=== PATIENT | female | born 1930 | race African-American/Black ===

== ENCOUNTER 2018-06-23 06:48 | Inpatient (IN) | payer MEDICARE, MEDICAID ==
[~2018-06-23] VITALS: Ht 167.6 cm; Wt 65.3 kg
[~2018-06-23 06:48] MED LIST: AMIT10TA6 PO; AMLO5TAB88 MT; BUSP5TAB3 PO; CLON0.1T PO; DONE5TAB33 PO; DULO60CA44 PO; FERR-63 PO; IPRA0.2S51 NEB; LEVO88TA7 PO; LISI10TA5 PO; MEMA10TA2 PO; PREG100C PO; TRAM50TA3 PO
[2018-06-23 09:22] LABS: BASOPHILS % 0.9 % (0.0-2.0); EOSINOPHILS % 2.9 % (0.0-5.0); HEMATOCRIT. 36.4 % (36.0-48.0); HEMOGLOBIN. 11.8 g/dL (12.0-16.0); MEAN CORPUSCULAR HEMOGLOBIN 27.9 pg (28.0-32.0); MEAN CORPUSCULAR VOLUME 86.1 fL (81.0-99.0); MEAN PLATELET VOLUME 7.9 fl (7.4-10.4); MONOCYTES % 8.5 % (2.0-8.0); NEUTROPHILS % 62.7 % (40.0-76.0); PLATELET 244 x1000/uL (130-400); RED BLOOD CELL COUNT 4.23 mill/uL (4.2-5.4); RED CELL DISTRIBUTION WIDTH 14.7 % (11.6-14.6)
[2018-06-23 09:28] LABS: CHLORIDE 107 mEq/L (98-107)
[2018-06-23 09:32] LABS: ETHANOL BLOOD < 10 mg/dL
[2018-06-23 11:57] LABS: CLARITY URINE CLEAR (CLEAR); COLOR URINE YELLOW (YELLOW); KETONES URINE NEGATIVE (NEGATIVE); LEUKOCYTE ESTERASE URINE NEGATIVE (NEGATIVE); NITRITE URINE NEGATIVE (NEGATIVE); OCCULT BLOOD URINE 2+ (NEGATIVE); PROTEIN URINE NEGATIVE (NEGATIVE); SPECIFIC GRAVITY URINE 1.024 (1.005-1.030); UROBILINOGEN URINE 0.2 E.U./dL (0.2-1.0)
[2018-06-23] MEDS ORDERED: GUAIFENESIN 200MG/10ML SUGAR FREE UDC PO PRN (12:00)
[2018-06-23] MEDS ORDERED: MAGNESIUM/ALUMINUM HYDROXIDE/SIMETHICONE 30ML UDC PO PRN (12:00)
[2018-06-23] MEDS ORDERED: ONDANSETRON HCL 4MG/2ML INJ IV PRN (12:00)
[2018-06-23] MEDS ORDERED: CLONIDINE 0.1MG TABLET PO PRN (12:00)
[2018-06-23] MEDS ORDERED: ACETAMINOPHEN 325MG TABLET PO PRN (12:00)
[2018-06-23] MEDS ORDERED: DIPHENHYDRAMINE 50MG/ML VIAL IV PRN (12:00)
[2018-06-23] MEDS ORDERED: DEXTROSE 50% WATER 50ML SYRINGE IV PRN ×2 (12:00)
[2018-06-23] MEDS ORDERED: DOCUSATE SODIUM 100MG CAPSULE PO PRN (12:00)
[2018-06-23 12:36] LABS: *AMPHETAMINES SCREEN URINE NEGATIVE (NEGATIVE)
[2018-06-23 12:38] LABS: *BARBITURATES SCREEN URINE NEGATIVE (NEGATIVE); *BENZODIAZEPINES SCREEN URINE NEGATIVE (NEGATIVE); *COCAINE SCREEN URINE NEGATIVE (NEGATIVE); CANNABINOID URINE SCREEN NEGATIVE (NEGATIVE); METHADONE URINE SCREEN NEGATIVE (NEGATIVE); OPIATES URINE SCREEN NEGATIVE (NEGATIVE); PHENCYCLIDINE URINE SCREEN NEGATIVE (NEGATIVE)
[2018-06-23 17:00] VITALS: BP 170/97
[2018-06-23] MEDS: INSULIN LISPRO 100 UNITS/ML SUBCUT SCH ×2 (17:30→21:17)
[2018-06-23] MEDS: BLOOD SUGAR DIAGNOSTIC STRIP TEST SCH ×2 (17:36→20:47)
[2018-06-23] MEDS: FERROUS SULFATE 325MG TABLET PO SCH (17:43)
[2018-06-23] MEDS: BUSPIRONE HCL 5MG TABLET PO SCH (17:43)
[2018-06-23] MEDS: CLONIDINE 0.1MG TABLET PO SCH (17:43)
[2018-06-23] MEDS: MEMANTINE HCL 10MG TABLET PO SCH (17:43)
[2018-06-23] MEDS: ENOXAPARIN 40MG/0.4ML SYR SUBCUT SCH (17:44)
[2018-06-23 18:28] VITALS: BP 151/85
[2018-06-23 20:00] VITALS: BP 147/76
[2018-06-23] MEDS: DONEPEZIL HCL 5MG TABLET PO SCH (20:47)
[2018-06-23] MEDS: LORAZEPAM 2MG/ML CPJ IV PRN (20:49)
[2018-06-23] MEDS: PREGABALIN 50 MG CAPSULE PO SCH (21:00)
[2018-06-24] VITALS (8 sets, daily range): BP systolic 70–168; BP diastolic 41–104
[2018-06-24] MEDS: LEVOTHYROXINE SODIUM 88MCG TABLET PO SCH (06:41)
[2018-06-24] MEDS: BLOOD SUGAR DIAGNOSTIC STRIP TEST SCH ×4 (06:42→20:17)
[2018-06-24] MEDS: INSULIN LISPRO 100 UNITS/ML SUBCUT SCH ×4 (07:02→20:22)
[2018-06-24 07:03] LABS: BASOPHILS % 0.8 % (0.0-2.0); EOSINOPHILS % 3.1 % (0.0-5.0); HEMATOCRIT. 35.3 % (36.0-48.0); HEMOGLOBIN. 11.3 g/dL (12.0-16.0); LYMPHOCYTES % 34.2 % (20.0-50.0); MEAN CORPUSCULAR HEMOGLOBIN 27.6 pg (28.0-32.0); MEAN PLATELET VOLUME 8.1 fl (7.4-10.4); MONOCYTES % 9.1 % (2.0-8.0); NEUTROPHILS % 52.8 % (40.0-76.0); PLATELET 237 x1000/uL (130-400); RED CELL DISTRIBUTION WIDTH 14.2 % (11.6-14.6)
[2018-06-24 07:06] LABS: CHLORIDE 108 mEq/L (98-107)
[2018-06-24] MEDS ORDERED: LISINOPRIL 10MG TABLET PO SCH (09:00)
[2018-06-24] MEDS: AMITRIPTYLINE 10MG TABLET PO SCH (09:49)
[2018-06-24] MEDS: BUSPIRONE HCL 5MG TABLET PO SCH ×2 (09:49→17:11)
[2018-06-24] MEDS: LISINOPRIL 20MG TABLET PO SCH (09:49)
[2018-06-24] MEDS: DULOXETINE HCL 60MG DR CAPSULE PO SCH (09:50)
[2018-06-24] MEDS: PREGABALIN 50 MG CAPSULE PO SCH ×2 (09:50→20:16)
[2018-06-24] MEDS: CLONIDINE 0.1MG TABLET PO SCH ×2 (09:50→17:00)
[2018-06-24] MEDS: MEMANTINE HCL 10MG TABLET PO SCH ×2 (09:50→17:11)
[2018-06-24] MEDS: FERROUS SULFATE 325MG TABLET PO SCH ×2 (09:51→17:10)
[2018-06-24] MEDS: AMLODIPINE 5MG TABLET PO SCH (09:52)
[2018-06-24] MEDS ORDERED: SODIUM CHLORIDE 0.9% 250 ML IV ONE (16:45)
[2018-06-24] MEDS: ENOXAPARIN 40MG/0.4ML SYR SUBCUT SCH (17:11)
[2018-06-24] MEDS: DONEPEZIL HCL 5MG TABLET PO SCH (20:16)
[2018-06-24] MEDS: DEXT 5%/0.45% NACL KCL 20MEQ/L 1,000 ML IV SCH (21:50)
[2018-06-25] MEDS: LORAZEPAM 2MG/ML CPJ IV PRN ×2 (02:02→15:14)
[2018-06-25 03:59] VITALS: BP 143/84
[2018-06-25] MEDS: LEVOTHYROXINE SODIUM 88MCG TABLET PO SCH (06:35)
[2018-06-25] MEDS: BLOOD SUGAR DIAGNOSTIC STRIP TEST SCH ×4 (06:35→21:26)
[2018-06-25] MEDS: INSULIN LISPRO 100 UNITS/ML SUBCUT SCH ×4 (06:46→21:00)
[2018-06-25 07:18] LABS: HEMATOCRIT. 36.6 % (36.0-48.0); HEMOGLOBIN. 11.8 g/dL (12.0-16.0); MEAN CORPUSCULAR HEMOGLOBIN 27.4 pg (28.0-32.0); MEAN CORPUSCULAR VOLUME 84.9 fL (81.0-99.0); MEAN PLATELET VOLUME 7.9 fl (7.4-10.4); PLATELET 263 x1000/uL (130-400); RED CELL DISTRIBUTION WIDTH 14.5 % (11.6-14.6)
[2018-06-25 07:42] LABS: CHLORIDE 107 mEq/L (98-107)
[2018-06-25] MEDS: DEXT 5%/0.45% NACL KCL 20MEQ/L 1,000 ML IV SCH ×2 (07:55→21:09)
[2018-06-25 08:00] VITALS: BP 147/81
[2018-06-25] MEDS: AMITRIPTYLINE 10MG TABLET PO SCH (08:27)
[2018-06-25] MEDS: CLONIDINE 0.1MG TABLET PO SCH ×2 (08:27→18:25)
[2018-06-25] MEDS: AMLODIPINE 5MG TABLET PO SCH (08:27)
[2018-06-25] MEDS: FERROUS SULFATE 325MG TABLET PO SCH ×2 (08:28→18:25)
[2018-06-25] MEDS: BUSPIRONE HCL 5MG TABLET PO SCH ×2 (08:28→18:24)
[2018-06-25] MEDS: DULOXETINE HCL 60MG DR CAPSULE PO SCH (08:28)
[2018-06-25] MEDS: MEMANTINE HCL 10MG TABLET PO SCH ×2 (08:28→18:25)
[2018-06-25] MEDS: LISINOPRIL 20MG TABLET PO SCH (08:28)
[2018-06-25] MEDS: PREGABALIN 50 MG CAPSULE PO SCH ×2 (08:28→21:09)
[2018-06-25 12:00] VITALS: BP 117/78
[2018-06-25 13:34] LABS: PLATELET ESTIMATE NORMAL
[2018-06-25 16:00] VITALS: BP 131/73
[2018-06-25] MEDS: ENOXAPARIN 40MG/0.4ML SYR SUBCUT SCH (18:25)
[2018-06-25 20:00] VITALS: BP 147/83
[2018-06-25] MEDS: DONEPEZIL HCL 5MG TABLET PO SCH (21:09)
[2018-06-26] VITALS (7 sets, daily range): BP systolic 79–160; BP diastolic 38–72
[2018-06-26] MEDS: BLOOD SUGAR DIAGNOSTIC STRIP TEST SCH ×4 (06:52→20:45)
[2018-06-26] MEDS: INSULIN LISPRO 100 UNITS/ML SUBCUT SCH ×4 (06:52→20:45)
[2018-06-26] MEDS: LEVOTHYROXINE SODIUM 88MCG TABLET PO SCH (06:53)
[2018-06-26 07:30] LABS: BASOPHILS % 0.7 % (0.0-2.0); EOSINOPHILS % 1.9 % (0.0-5.0); HEMATOCRIT. 37.5 % (36.0-48.0); LYMPHOCYTES % 25.1 % (20.0-50.0); MEAN CORPUSCULAR HEMOGLOBIN 27.5 pg (28.0-32.0); MEAN CORPUSCULAR VOLUME 85.7 fL (81.0-99.0); MONOCYTES % 7.3 % (2.0-8.0); PLATELET 259 x1000/uL (130-400); RED BLOOD CELL COUNT 4.38 mill/uL (4.2-5.4); RED CELL DISTRIBUTION WIDTH 14.2 % (11.6-14.6)
[2018-06-26] MEDS: AMLODIPINE 5MG TABLET PO SCH (09:00)
[2018-06-26] MEDS: CLONIDINE 0.1MG TABLET PO SCH ×2 (09:00→17:00)
[2018-06-26] MEDS: LISINOPRIL 20MG TABLET PO SCH (09:00)
[2018-06-26] MEDS: DEXT 5%/0.45% NACL KCL 20MEQ/L 1,000 ML IV SCH ×2 (09:06→19:05)
[2018-06-26] MEDS: BUSPIRONE HCL 5MG TABLET PO SCH ×2 (09:06→17:26)
[2018-06-26] MEDS: DULOXETINE HCL 60MG DR CAPSULE PO SCH (09:06)
[2018-06-26] MEDS: PREGABALIN 50 MG CAPSULE PO SCH (09:06)
[2018-06-26] MEDS: MEMANTINE HCL 10MG TABLET PO SCH ×2 (09:06→17:26)
[2018-06-26] MEDS: AMITRIPTYLINE 10MG TABLET PO SCH (09:06)
[2018-06-26] MEDS: FERROUS SULFATE 325MG TABLET PO SCH ×2 (09:06→17:26)
[2018-06-26] MEDS ORDERED: LORAZEPAM 2MG/ML CPJ IV PRN (12:00)
[2018-06-26 13:36] LABS: CLARITY URINE CLEAR (CLEAR); COLOR URINE YELLOW (YELLOW); KETONES URINE NEGATIVE (NEGATIVE); LEUKOCYTE ESTERASE URINE 2+ (NEGATIVE); NITRITE URINE NEGATIVE (NEGATIVE); OCCULT BLOOD URINE NEGATIVE (NEGATIVE); PH URINE 5.5 (4.5-8.0); PROTEIN URINE NEGATIVE (NEGATIVE); UROBILINOGEN URINE 0.2 E.U./dL (0.2-1.0)
[2018-06-26] MEDS: ENOXAPARIN 40MG/0.4ML SYR SUBCUT SCH (17:26)
[2018-06-26 17:58] LABS: VITAMIN B12 SERUM 1079 pg/mL (211-911)
[2018-06-27] VITALS: BP 110/70
[2018-06-27 04:00] VITALS: BP 136/75
[2018-06-27] MEDS: LEVOTHYROXINE SODIUM 88MCG TABLET PO SCH (05:49)
[2018-06-27] MEDS: INSULIN LISPRO 100 UNITS/ML SUBCUT SCH ×4 (06:13→21:09)
[2018-06-27] MEDS: BLOOD SUGAR DIAGNOSTIC STRIP TEST SCH ×4 (06:13→21:00)
[2018-06-27 06:38] LABS: BASOPHILS % 0.7 % (0.0-2.0); EOSINOPHILS % 3.1 % (0.0-5.0); HEMATOCRIT. 37.9 % (36.0-48.0); HEMOGLOBIN. 12.2 g/dL (12.0-16.0); LYMPHOCYTES % 31.3 % (20.0-50.0); MEAN CORPUSCULAR HEMOGLOBIN 27.6 pg (28.0-32.0); MEAN CORPUSCULAR VOLUME 85.7 fL (81.0-99.0); MONOCYTES % 8.5 % (2.0-8.0); NEUTROPHILS % 56.4 % (40.0-76.0); PLATELET 274 x1000/uL (130-400); RED BLOOD CELL COUNT 4.43 mill/uL (4.2-5.4); RED CELL DISTRIBUTION WIDTH 14.3 % (11.6-14.6)
[2018-06-27 07:17] LABS: CHLORIDE 106 mEq/L (98-107)
[2018-06-27] MEDS: CLONIDINE 0.1MG TABLET PO SCH ×2 (09:21→17:00)
[2018-06-27] MEDS: FERROUS SULFATE 325MG TABLET PO SCH ×2 (09:21→18:39)
[2018-06-27] MEDS: BUSPIRONE HCL 5MG TABLET PO SCH ×2 (09:21→18:39)
[2018-06-27] MEDS: DULOXETINE HCL 60MG DR CAPSULE PO SCH (09:21)
[2018-06-27] MEDS: AMITRIPTYLINE 10MG TABLET PO SCH (09:22)
[2018-06-27] MEDS: LISINOPRIL 10MG TABLET PO SCH (09:22)
[2018-06-27] MEDS: AMLODIPINE 5MG TABLET PO SCH (09:22)
[2018-06-27] MEDS: MEMANTINE HCL 10MG TABLET PO SCH ×2 (09:22→18:39)
[2018-06-27] MEDS: DEXT 5%/0.45% NACL KCL 20MEQ/L 1,000 ML IV SCH (15:15)
[2018-06-27] MEDS ORDERED: LEVOTHYROXINE SODIUM 25MCG TABLET PO SCH (15:45)
[2018-06-27] MEDS: ENOXAPARIN 40MG/0.4ML SYR SUBCUT SCH (18:39)
[2018-06-27 20:00] VITALS: BP 147/75
[2018-06-28] VITALS: BP 115/65
[2018-06-28 04:00] VITALS: BP 157/78
[2018-06-28] MEDS: DEXT 5%/0.45% NACL KCL 20MEQ/L 1,000 ML IV SCH (05:05)
[2018-06-28] MEDS: INSULIN LISPRO 100 UNITS/ML SUBCUT SCH ×4 (06:33→21:06)
[2018-06-28] MEDS: BLOOD SUGAR DIAGNOSTIC STRIP TEST SCH ×4 (06:33→21:00)
[2018-06-28] MEDS: LEVOTHYROXINE SODIUM 88MCG TABLET PO SCH (06:33)
[2018-06-28 07:16] LABS: BASOPHILS % 0.8 % (0.0-2.0); EOSINOPHILS % 2.1 % (0.0-5.0); HEMATOCRIT. 38.5 % (36.0-48.0); HEMOGLOBIN. 12.4 g/dL (12.0-16.0); LYMPHOCYTES % 28.1 % (20.0-50.0); MEAN CORPUSCULAR HEMOGLOBIN 27.7 pg (28.0-32.0); MEAN CORPUSCULAR VOLUME 86.2 fL (81.0-99.0); MEAN PLATELET VOLUME 7.9 fl (7.4-10.4); MONOCYTES % 10.2 % (2.0-8.0); NEUTROPHILS % 58.8 % (40.0-76.0); PLATELET 278 x1000/uL (130-400); RED BLOOD CELL COUNT 4.47 mill/uL (4.2-5.4); RED CELL DISTRIBUTION WIDTH 14.6 % (11.6-14.6)
[2018-06-28 08:00] VITALS: BP 164/88
[2018-06-28] MEDS: MEMANTINE HCL 10MG TABLET PO SCH ×2 (09:11→17:03)
[2018-06-28] MEDS: AMITRIPTYLINE 10MG TABLET PO SCH (09:11)
[2018-06-28] MEDS: BUSPIRONE HCL 5MG TABLET PO SCH ×2 (09:11→17:04)
[2018-06-28] MEDS: FERROUS SULFATE 325MG TABLET PO SCH ×2 (09:11→17:03)
[2018-06-28] MEDS: AMLODIPINE 5MG TABLET PO SCH (09:11)
[2018-06-28] MEDS: DULOXETINE HCL 60MG DR CAPSULE PO SCH (09:11)
[2018-06-28] MEDS: CLONIDINE 0.1MG TABLET PO SCH ×2 (09:12→17:04)
[2018-06-28] MEDS: LISINOPRIL 10MG TABLET PO SCH (09:12)
[2018-06-28 12:00] VITALS: BP 161/81
[2018-06-28] MEDS ORDERED: SODIUM POLYSTYRENE SULFONATE 15 G/60 ML BOT PO SCH (14:30)
[2018-06-28 16:00] VITALS: BP 176/90
[2018-06-28] MEDS: ENOXAPARIN 40MG/0.4ML SYR SUBCUT SCH (17:04)
[2018-06-28 20:00] VITALS: BP 117/65
[2018-06-29] VITALS: BP 126/58
[2018-06-29 06:00] VITALS: BP 130/61
[2018-06-29] MEDS: LEVOTHYROXINE SODIUM 88MCG TABLET PO SCH (06:18)
[2018-06-29] MEDS: BLOOD SUGAR DIAGNOSTIC STRIP TEST SCH ×2 (06:18→11:46)
[2018-06-29] MEDS: INSULIN LISPRO 100 UNITS/ML SUBCUT SCH ×2 (06:18→11:46)
[2018-06-29 07:26] LABS: BASOPHILS % 0.6 % (0.0-2.0); HEMATOCRIT. 40.1 % (36.0-48.0); HEMOGLOBIN. 12.9 g/dL (12.0-16.0); LYMPHOCYTES % 24.6 % (20.0-50.0); MEAN CORPUSCULAR HEMOGLOBIN 27.8 pg (28.0-32.0); MEAN CORPUSCULAR VOLUME 86.3 fL (81.0-99.0); MEAN PLATELET VOLUME 8.2 fl (7.4-10.4); MONOCYTES % 10.4 % (2.0-8.0); NEUTROPHILS % 62.4 % (40.0-76.0); PLATELET 269 x1000/uL (130-400); RED BLOOD CELL COUNT 4.65 mill/uL (4.2-5.4); RED CELL DISTRIBUTION WIDTH 14.4 % (11.6-14.6)
[2018-06-29 08:00] VITALS: BP 179/86
[2018-06-29] MEDS: DULOXETINE HCL 60MG DR CAPSULE PO SCH (09:18)
[2018-06-29] MEDS: FERROUS SULFATE 325MG TABLET PO SCH (09:18)
[2018-06-29] MEDS: AMLODIPINE 5MG TABLET PO SCH (09:18)
[2018-06-29] MEDS: CLONIDINE 0.1MG TABLET PO SCH (09:18)
[2018-06-29] MEDS: MEMANTINE HCL 10MG TABLET PO SCH (09:18)
[2018-06-29] MEDS: LISINOPRIL 10MG TABLET PO SCH (09:18)
[2018-06-29] MEDS: AMITRIPTYLINE 10MG TABLET PO SCH (09:19)
[2018-06-29 10:55] VITALS: BP 179/86
[2018-06-29 12:00] VITALS: BP 136/66
== END 2018-06-29 14:05 | DRG 78 ==
LOC: ER 07:50 → 5WST 11:02 → EDBEDREQTM 11:06 → EDBEDREQ 11:06 → ENRESERV 14:22
PROVIDERS: ADMIT Internal Medicine Geriatric Medicine; ATTEND Internal Medicine Geriatric Medicine
PROC: 4A00X4Z Measurement of Central Nervous Electrical Activity, External Approach (ICD-10-PCS; principal; 2018-06-23)
DX: I67.4 Hypertensive encephalopathy (principal); F02.81 Dementia in other diseases classified elsewhere, unspecified severity, with behavioral disturbance; I11.9 Hypertensive heart disease without heart failure; E86.0 Dehydration; E11.42 Type 2 diabetes mellitus with diabetic polyneuropathy; D63.8 Anemia in other chronic diseases classified elsewhere; E03.9 Hypothyroidism, unspecified; E78.5 Hyperlipidemia, unspecified; G30.9 Alzheimer's disease, unspecified; M19.90 Unspecified osteoarthritis, unspecified site; R62.7 Adult failure to thrive; G90.9 Disorder of the autonomic nervous system, unspecified; E05.90 Thyrotoxicosis, unspecified without thyrotoxic crisis or storm; I95.9 Hypotension, unspecified; Z79.899 Other long term (current) drug therapy; Z86.73 Personal history of transient ischemic attack (TIA), and cerebral infarction without residual deficits; Z79.84 Long term (current) use of oral hypoglycemic drugs
CPT/HCPCS: 36415; 70551; 71045; 80048; 80061; 80305; 82607; 82962; 83036; 83735; 83880; 84443; 84484; 93005; 93306; 93970; 99285; G0482; J1200; J1650; J1815; J2060; J7050

== ENCOUNTER 2019-10-01 21:00 | Inpatient (IN) | payer MEDICARE, MEDICAID ==
[~2019-10-01] VITALS: Ht 172.7 cm; Wt 99.8 kg
[2019-10-01] MEDS ORDERED: CEFTRIAXONE 1 G PREMIX 50 ML IV ONE (22:00)
[2019-10-01] MEDS ORDERED: AZITHROMYCIN 500 MG in DEXT 5% WATER 250 ML IV ONE (22:00)
[2019-10-01 22:48] LABS: INR 0.9; PROTHROMBIN TIME 10.1 sec (9.6-11.0)
[2019-10-01 22:50] LABS: CHLORIDE 104 mEq/L (98-107)
[2019-10-01 22:54] LABS: HEMATOCRIT. 39.4 % (36.0-48.0); MEAN CORPUSCULAR HEMOGLOBIN 28.1 pg (28.0-32.0); MEAN CORPUSCULAR VOLUME 85.1 fL (81.0-99.0); MEAN PLATELET VOLUME 8.1 fl (7.4-10.4); PLATELET 282 x1000/uL (130-400); RED BLOOD CELL COUNT 4.63 mill/uL (4.2-5.4); RED CELL DISTRIBUTION WIDTH 14.8 % (11.6-14.6)
[2019-10-02 01:14] LABS: CLARITY URINE CLOUDY (CLEAR); COLOR URINE DARK YELLOW (YELLOW); KETONES URINE TRACE (NEGATIVE); LEUKOCYTE ESTERASE URINE TRACE (NEGATIVE); NITRITE URINE NEGATIVE (NEGATIVE); OCCULT BLOOD URINE NEGATIVE (NEGATIVE); PROTEIN URINE 1+ (NEGATIVE); SPECIFIC GRAVITY URINE 1.032 (1.005-1.030)
[2019-10-02 02:30] LABS: PLATELET ESTIMATE NORMAL
[2019-10-02 05:40] VITALS: BP 140/81
[2019-10-02 08:00] VITALS: BP 154/73
[2019-10-02] MEDS ORDERED: DEXTROSE 50% WATER 50ML SYRINGE IV PRN (08:00)
[2019-10-02] MEDS: INSULIN LISPRO 100 UNITS/ML SUBCUT SCH ×4 (08:10→21:00)
[2019-10-02 12:00] VITALS: BP 148/68
[2019-10-02] MEDS ORDERED: ONDANSETRON HCL 4MG/2ML INJ IV PRN (12:15)
[2019-10-02] MEDS: ENOXAPARIN 40MG/0.4ML SYR SUBCUT SCH (12:46)
[2019-10-02] MEDS: BLOOD SUGAR DIAGNOSTIC STRIP TEST SCH ×3 (13:27→21:31)
[2019-10-02] MEDS: LISINOPRIL 10MG TABLET PO SCH (15:01)
[2019-10-02] MEDS: AMLODIPINE 5MG TABLET PO SCH (15:01)
[2019-10-02 16:00] VITALS: BP 133/78
[2019-10-02] MEDS ORDERED: IPRATROPIUM BROMIDE (0.02%) 0.5MG/2.5ML NEB HHN SCH (16:00)
[2019-10-02] MEDS ORDERED: BUSPIRONE HCL 5MG TABLET PO SCH (17:00)
[2019-10-02] MEDS: FERROUS SULFATE 325MG TABLET PO SCH (17:35)
[2019-10-02 20:00] VITALS: BP 173/69
[2019-10-02] MEDS: DONEPEZIL HCL 5MG TABLET PO SCH (21:30)
[2019-10-02] MEDS: MEMANTINE HCL 10MG TABLET PO SCH (21:30)
[2019-10-02] MEDS: ACETAMINOPHEN 325MG TABLET PO PRN (21:30)
[2019-10-02] MEDS: CLONIDINE 0.1MG TABLET PO SCH (21:30)
[2019-10-02] MEDS: CEFTRIAXONE 1 G PREMIX 50 ML IV SCH (22:51)
[2019-10-03] VITALS: BP 112/58
[2019-10-03 04:00] VITALS: BP 131/64
[2019-10-03] MEDS: LEVOTHYROXINE SODIUM 88MCG TABLET PO SCH (06:05)
[2019-10-03] MEDS: BLOOD SUGAR DIAGNOSTIC STRIP TEST SCH ×4 (06:10→21:29)
[2019-10-03 08:00] VITALS: BP 150/82
[2019-10-03] MEDS: INSULIN LISPRO 100 UNITS/ML SUBCUT SCH ×4 (08:07→21:00)
[2019-10-03] MEDS ORDERED: LEVOTHYROXINE SODIUM 88MCG TABLET PO SCH (09:00)
[2019-10-03] MEDS: FERROUS SULFATE 325MG TABLET PO SCH ×3 (09:33→18:12)
[2019-10-03] MEDS: MEMANTINE HCL 10MG TABLET PO SCH ×2 (09:33→21:29)
[2019-10-03] MEDS: AMLODIPINE 5MG TABLET PO SCH (09:33)
[2019-10-03] MEDS: DULOXETINE HCL 60MG DR CAPSULE PO SCH (09:34)
[2019-10-03] MEDS: AMITRIPTYLINE 10MG TABLET PO SCH (09:34)
[2019-10-03] MEDS: CLONIDINE 0.1MG TABLET PO SCH ×2 (09:34→21:00)
[2019-10-03] MEDS: LISINOPRIL 10MG TABLET PO SCH (09:41)
[2019-10-03 12:00] VITALS: BP 102/53
[2019-10-03] MEDS: ENOXAPARIN 40MG/0.4ML SYR SUBCUT SCH (12:46)
[2019-10-03] MEDS: ACETAMINOPHEN 325MG TABLET PO PRN (13:52)
[2019-10-03] MEDS ORDERED: AZITHROMYCIN 500 MG TABLET PO SCH ×2 (14:00→15:15)
[2019-10-03] MEDS ORDERED: HYDROXYCHLOROQUINE SULFATE 200MG TABLET PO SCH (15:15)
[2019-10-03 16:00] VITALS: BP 98/47
[2019-10-03] MEDS: THIAMINE HCL 100MG TABLET PO SCH ×2 (18:05→18:11)
[2019-10-03] MEDS: ASCORBIC ACID 500 MG TABLET PO SCH ×2 (18:06→18:12)
[2019-10-03] MEDS: ZINC SULFATE 220 MG ( 50 ) CAPSULE PO SCH ×2 (18:07→18:12)
[2019-10-03 20:00] VITALS: BP 92/47
[2019-10-03] MEDS: DONEPEZIL HCL 5MG TABLET PO SCH (21:29)
[2019-10-03] MEDS: CEFTRIAXONE 1 G PREMIX 50 ML IV SCH (21:30)
[2019-10-04] VITALS: BP 90/44
[2019-10-04 04:00] VITALS: BP 95/61
[2019-10-04] MEDS: BLOOD SUGAR DIAGNOSTIC STRIP TEST SCH ×4 (07:04→21:53)
[2019-10-04] MEDS: INSULIN LISPRO 100 UNITS/ML SUBCUT SCH ×4 (07:52→21:00)
[2019-10-04 08:00] VITALS: BP 96/58
[2019-10-04] MEDS: CLONIDINE 0.1MG TABLET PO SCH (08:39)
[2019-10-04] MEDS: LEVOTHYROXINE SODIUM 88MCG TABLET PO SCH (08:40)
[2019-10-04] MEDS: LISINOPRIL 10MG TABLET PO SCH (08:40)
[2019-10-04] MEDS: DULOXETINE HCL 60MG DR CAPSULE PO SCH (08:41)
[2019-10-04] MEDS: AMLODIPINE 5MG TABLET PO SCH (08:41)
[2019-10-04] MEDS: AMITRIPTYLINE 10MG TABLET PO SCH (08:41)
[2019-10-04] MEDS: HYDROXYCHLOROQUINE SULFATE 200MG TABLET PO SCH ×2 (08:42→20:56)
[2019-10-04] MEDS: MEMANTINE HCL 10MG TABLET PO SCH ×2 (08:47→20:56)
[2019-10-04] MEDS: ENOXAPARIN 40MG/0.4ML SYR SUBCUT SCH (11:52)
[2019-10-04 12:00] VITALS: BP 101/59
[2019-10-04] MEDS: SODIUM CHLORIDE 0.9% 1,000 ML IV SCH (14:30)
[2019-10-04 15:38] LABS: BASOPHILS % 0.4 % (0.0-2.0); EOSINOPHILS % 0.3 % (0.0-5.0); HEMATOCRIT. 41.6 % (36.0-48.0); HEMOGLOBIN. 13.3 g/dL (12.0-16.0); LYMPHOCYTES % 22.1 % (20.0-50.0); MEAN CORPUSCULAR HEMOGLOBIN 27.6 pg (28.0-32.0); MEAN PLATELET VOLUME 8.3 fl (7.4-10.4); MONOCYTES % 9.9 % (2.0-8.0); NEUTROPHILS % 67.3 % (40.0-76.0); PLATELET 242 x1000/uL (130-400); RED BLOOD CELL COUNT 4.83 mill/uL (4.2-5.4); RED CELL DISTRIBUTION WIDTH 15.2 % (11.6-14.6)
[2019-10-04 16:00] VITALS: BP 109/58
[2019-10-04] MEDS: AZITHROMYCIN 250 MG TABLET PO SCH (16:12)
[2019-10-04] MEDS: THIAMINE HCL 100MG TABLET PO SCH (18:04)
[2019-10-04] MEDS: ASCORBIC ACID 500 MG TABLET PO SCH (18:05)
[2019-10-04] MEDS: FERROUS SULFATE 325MG TABLET PO SCH (18:05)
[2019-10-04 20:22] VITALS: BP 104/58
[2019-10-04] MEDS: DONEPEZIL HCL 5MG TABLET PO SCH (20:56)
[2019-10-04] MEDS: CEFTRIAXONE 1 G PREMIX 50 ML IV SCH (21:52)
[2019-10-05] VITALS: BP 104/64
[2019-10-05] MEDS: SODIUM CHLORIDE 0.9% 1,000 ML IV SCH ×2 (03:00→15:00)
[2019-10-05 04:00] VITALS: BP 94/56
[2019-10-05] MEDS: BLOOD SUGAR DIAGNOSTIC STRIP TEST SCH ×4 (06:53→21:00)
[2019-10-05] MEDS: LEVOTHYROXINE SODIUM 88MCG TABLET PO SCH (06:53)
[2019-10-05 08:00] VITALS: BP 98/53
[2019-10-05] MEDS: INSULIN LISPRO 100 UNITS/ML SUBCUT SCH ×4 (08:10→21:00)
[2019-10-05] MEDS: ASCORBIC ACID 500 MG TABLET PO SCH ×2 (08:57→17:58)
[2019-10-05] MEDS: AMITRIPTYLINE 10MG TABLET PO SCH (08:57)
[2019-10-05] MEDS: FERROUS SULFATE 325MG TABLET PO SCH ×2 (08:57→17:58)
[2019-10-05] MEDS: ZINC SULFATE 220 MG ( 50 ) CAPSULE PO SCH (08:57)
[2019-10-05] MEDS: MEMANTINE HCL 10MG TABLET PO SCH ×2 (08:57→21:45)
[2019-10-05] MEDS: THIAMINE HCL 100MG TABLET PO SCH ×2 (08:58→17:58)
[2019-10-05] MEDS: HYDROXYCHLOROQUINE SULFATE 200MG TABLET PO SCH ×2 (08:58→21:45)
[2019-10-05] MEDS: DULOXETINE HCL 60MG DR CAPSULE PO SCH (09:19)
[2019-10-05 10:04] LABS: BASOPHILS % 0.6 % (0.0-2.0); EOSINOPHILS % 0.2 % (0.0-5.0); HEMATOCRIT. 43.9 % (36.0-48.0); HEMOGLOBIN. 14.1 g/dL (12.0-16.0); LYMPHOCYTES % 23.1 % (20.0-50.0); MEAN CORPUSCULAR HEMOGLOBIN 27.4 pg (28.0-32.0); MEAN CORPUSCULAR VOLUME 85.6 fL (81.0-99.0); MEAN PLATELET VOLUME 8.3 fl (7.4-10.4); MONOCYTES % 13.5 % (2.0-8.0); NEUTROPHILS % 62.6 % (40.0-76.0); PLATELET 289 x1000/uL (130-400); RED BLOOD CELL COUNT 5.13 mill/uL (4.2-5.4); RED CELL DISTRIBUTION WIDTH 15.1 % (11.6-14.6)
[2019-10-05 10:14] LABS: CHLORIDE 107 mEq/L (98-107)
[2019-10-05 10:27] LABS: CREATINE KINASE MB FRACTION 3.6 ng/mL (0.5-3.6)
[2019-10-05 12:00] VITALS: BP 138/71
[2019-10-05] MEDS: ENOXAPARIN 40MG/0.4ML SYR SUBCUT SCH (12:36)
[2019-10-05] MEDS: AZITHROMYCIN 250 MG TABLET PO SCH (14:59)
[2019-10-05 16:00] VITALS: BP 140/76
[2019-10-05 20:00] VITALS: BP 152/67
[2019-10-05] MEDS: CEFTRIAXONE 1 G PREMIX 50 ML IV SCH (21:45)
[2019-10-05] MEDS: DONEPEZIL HCL 5MG TABLET PO SCH (21:45)
[2019-10-06] VITALS (7 sets, daily range): BP systolic 98–164; BP diastolic 64–83
[2019-10-06] MEDS: SODIUM CHLORIDE 0.9% 1,000 ML IV SCH ×2 (04:18→15:58)
[2019-10-06] MEDS: INSULIN LISPRO 100 UNITS/ML SUBCUT SCH ×4 (06:06→21:00)
[2019-10-06] MEDS: BLOOD SUGAR DIAGNOSTIC STRIP TEST SCH ×4 (06:06→21:32)
[2019-10-06] MEDS: DULOXETINE HCL 60MG DR CAPSULE PO SCH (08:25)
[2019-10-06] MEDS: THIAMINE HCL 100MG TABLET PO SCH ×2 (08:25→16:23)
[2019-10-06] MEDS: ZINC SULFATE 220 MG ( 50 ) CAPSULE PO SCH (08:25)
[2019-10-06] MEDS: HYDROXYCHLOROQUINE SULFATE 200MG TABLET PO SCH (08:25)
[2019-10-06] MEDS: ASCORBIC ACID 500 MG TABLET PO SCH ×2 (08:25→16:24)
[2019-10-06] MEDS: FERROUS SULFATE 325MG TABLET PO SCH ×2 (08:25→16:23)
[2019-10-06] MEDS: MEMANTINE HCL 10MG TABLET PO SCH ×2 (08:26→21:31)
[2019-10-06] MEDS: ENOXAPARIN 30MG/0.3ML SYR SUBCUT SCH (08:26)
[2019-10-06] MEDS: AMITRIPTYLINE 10MG TABLET PO SCH (08:29)
[2019-10-06] MEDS: LEVOTHYROXINE SODIUM 88MCG TABLET PO SCH (08:29)
[2019-10-06] MEDS: AZITHROMYCIN 250 MG TABLET PO SCH (14:18)
[2019-10-06] MEDS: DONEPEZIL HCL 5MG TABLET PO SCH (21:31)
[2019-10-06] MEDS: CEFTRIAXONE 1 G PREMIX 50 ML IV SCH (21:31)
[2019-10-07] VITALS: BP 136/65
[2019-10-07 04:00] VITALS: BP 130/69
[2019-10-07 08:00] VITALS: BP 128/80
[2019-10-07] MEDS: INSULIN LISPRO 100 UNITS/ML SUBCUT SCH ×4 (08:10→20:38)
[2019-10-07] MEDS: DULOXETINE HCL 60MG DR CAPSULE PO SCH (08:11)
[2019-10-07] MEDS: ZINC SULFATE 220 MG ( 50 ) CAPSULE PO SCH (08:11)
[2019-10-07] MEDS: ASCORBIC ACID 500 MG TABLET PO SCH ×2 (08:11→16:08)
[2019-10-07] MEDS: ENOXAPARIN 30MG/0.3ML SYR SUBCUT SCH (08:12)
[2019-10-07] MEDS: AMITRIPTYLINE 10MG TABLET PO SCH (08:12)
[2019-10-07] MEDS: MEMANTINE HCL 10MG TABLET PO SCH ×2 (08:12→21:34)
[2019-10-07] MEDS: FERROUS SULFATE 325MG TABLET PO SCH ×2 (08:12→16:08)
[2019-10-07] MEDS: LEVOTHYROXINE SODIUM 88MCG TABLET PO SCH (08:12)
[2019-10-07] MEDS: THIAMINE HCL 100MG TABLET PO SCH ×2 (08:12→16:08)
[2019-10-07] MEDS: BLOOD SUGAR DIAGNOSTIC STRIP TEST SCH ×4 (08:24→19:59)
[2019-10-07 12:00] VITALS: BP 130/66
[2019-10-07] MEDS: AZITHROMYCIN 250 MG TABLET PO SCH (14:27)
[2019-10-07 16:00] VITALS: BP 114/78
[2019-10-07] MEDS: METOPROLOL TARTRATE 25MG TABLET PO SCH (18:19)
[2019-10-07 20:00] VITALS: BP 149/89
[2019-10-07] MEDS: DONEPEZIL HCL 5MG TABLET PO SCH (21:34)
[2019-10-07] MEDS: CEFTRIAXONE 1 G PREMIX 50 ML IV SCH (22:24)
[2019-10-08] VITALS: BP 145/60
[2019-10-08 04:00] VITALS: BP 119/79
[2019-10-08] MEDS: BLOOD SUGAR DIAGNOSTIC STRIP TEST SCH ×4 (05:39→19:58)
[2019-10-08] MEDS: INSULIN LISPRO 100 UNITS/ML SUBCUT SCH ×4 (05:52→20:45)
[2019-10-08 06:09] LABS: CHLORIDE 111 mEq/L (98-107)
[2019-10-08 06:15] LABS: BASOPHILS % 0.5 % (0.0-2.0); EOSINOPHILS % 0.1 % (0.0-5.0); HEMATOCRIT. 41.9 % (36.0-48.0); HEMOGLOBIN. 13.6 g/dL (12.0-16.0); LYMPHOCYTES % 19.4 % (20.0-50.0); MEAN CORPUSCULAR HEMOGLOBIN 27.5 pg (28.0-32.0); MEAN CORPUSCULAR VOLUME 84.6 fL (81.0-99.0); MEAN PLATELET VOLUME 8.2 fl (7.4-10.4); PLATELET 266 x1000/uL (130-400); RED BLOOD CELL COUNT 4.96 mill/uL (4.2-5.4); RED CELL DISTRIBUTION WIDTH 15.2 % (11.6-14.6)
[2019-10-08 06:17] LABS: CREATINE KINASE MB FRACTION 1.3 ng/mL (0.5-3.6)
[2019-10-08 06:19] LABS: PHOSPHORUS 1.7 mg/dL (2.5-4.9)
[2019-10-08] MEDS: LEVOTHYROXINE SODIUM 88MCG TABLET PO SCH (08:32)
[2019-10-08] MEDS: THIAMINE HCL 100MG TABLET PO SCH ×2 (08:33→17:37)
[2019-10-08] MEDS: FERROUS SULFATE 325MG TABLET PO SCH ×2 (08:33→17:37)
[2019-10-08] MEDS: ZINC SULFATE 220 MG ( 50 ) CAPSULE PO SCH (08:33)
[2019-10-08] MEDS: MEMANTINE HCL 10MG TABLET PO SCH ×2 (08:33→21:37)
[2019-10-08] MEDS: ASCORBIC ACID 500 MG TABLET PO SCH ×2 (08:33→17:37)
[2019-10-08] MEDS: DULOXETINE HCL 60MG DR CAPSULE PO SCH (08:34)
[2019-10-08] MEDS: AMITRIPTYLINE 10MG TABLET PO SCH (08:34)
[2019-10-08] MEDS: ENOXAPARIN 30MG/0.3ML SYR SUBCUT SCH (08:34)
[2019-10-08] MEDS: METOPROLOL TARTRATE 25MG TABLET PO SCH (08:41)
[2019-10-08] MEDS ORDERED: ENOXAPARIN 80MG/0.8ML SYR SUBCUT NR (11:16)
[2019-10-08] MEDS ORDERED: POTASSIUM PHOS,M-BASIC-D-BASIC 15 MMOL in DEXT 5% WATER 245 ML IV NR (12:30)
[2019-10-08 14:33] LABS: T4 FREE 1.21 ng/dL (0.76-1.46)
[2019-10-08] MEDS ORDERED: AMIODARONE HCL 200 MG TABLET PO PRN (16:00)
[2019-10-08 20:00] VITALS: BP 134/50
[2019-10-08] MEDS: ENOXAPARIN 100MG/ML SYR SUBCUT SCH (21:36)
[2019-10-08] MEDS: DONEPEZIL HCL 5MG TABLET PO SCH (21:37)
[2019-10-09] VITALS: BP 137/74
[2019-10-09 04:00] VITALS: BP 116/62
[2019-10-09] MEDS: INSULIN LISPRO 100 UNITS/ML SUBCUT SCH ×4 (06:06→21:00)
[2019-10-09] MEDS: BLOOD SUGAR DIAGNOSTIC STRIP TEST SCH ×4 (06:06→21:52)
[2019-10-09] MEDS: ENOXAPARIN 100MG/ML SYR SUBCUT SCH ×2 (09:21→22:01)
[2019-10-09] MEDS: THIAMINE HCL 100MG TABLET PO SCH ×2 (09:21→17:00)
[2019-10-09] MEDS: LEVOTHYROXINE SODIUM 88MCG TABLET PO SCH (09:21)
[2019-10-09] MEDS: MEMANTINE HCL 10MG TABLET PO SCH ×2 (09:21→22:00)
[2019-10-09] MEDS: ASCORBIC ACID 500 MG TABLET PO SCH ×2 (09:22→17:00)
[2019-10-09] MEDS: ZINC SULFATE 220 MG ( 50 ) CAPSULE PO SCH (09:22)
[2019-10-09] MEDS: AMIODARONE HCL 200 MG TABLET PO SCH (09:22)
[2019-10-09] MEDS: FERROUS SULFATE 325MG TABLET PO SCH ×2 (09:22→19:11)
[2019-10-09] MEDS: AMITRIPTYLINE 10MG TABLET PO SCH (09:22)
[2019-10-09] MEDS: DULOXETINE HCL 60MG DR CAPSULE PO SCH (09:34)
[2019-10-09] MEDS: ACETAMINOPHEN 325MG TABLET PO PRN (11:25)
[2019-10-09 12:00] VITALS: BP 113/61
[2019-10-09] MEDS: METOPROLOL TARTRATE 25MG TABLET PO SCH ×2 (14:09→22:00)
[2019-10-09 16:00] VITALS: BP 143/73
[2019-10-09 20:00] VITALS: BP 149/71
[2019-10-09] MEDS: DONEPEZIL HCL 5MG TABLET PO SCH (22:00)
[2019-10-10] VITALS: BP 118/67
[2019-10-10 04:00] VITALS: BP 140/60
[2019-10-10] MEDS: BLOOD SUGAR DIAGNOSTIC STRIP TEST SCH ×4 (07:40→21:04)
[2019-10-10 08:00] VITALS: BP 115/65
[2019-10-10] MEDS: INSULIN LISPRO 100 UNITS/ML SUBCUT SCH ×4 (08:10→21:00)
[2019-10-10] MEDS: MEMANTINE HCL 10MG TABLET PO SCH ×2 (09:24→21:11)
[2019-10-10] MEDS: AMITRIPTYLINE 10MG TABLET PO SCH (09:24)
[2019-10-10] MEDS: AMIODARONE HCL 200 MG TABLET PO SCH (09:24)
[2019-10-10] MEDS: FERROUS SULFATE 325MG TABLET PO SCH ×2 (09:24→17:28)
[2019-10-10] MEDS: METOPROLOL TARTRATE 25MG TABLET PO SCH ×2 (09:24→21:00)
[2019-10-10] MEDS: LEVOTHYROXINE SODIUM 88MCG TABLET PO SCH (09:24)
[2019-10-10] MEDS: ZINC SULFATE 220 MG ( 50 ) CAPSULE PO SCH (09:24)
[2019-10-10] MEDS: DULOXETINE HCL 60MG DR CAPSULE PO SCH (09:24)
[2019-10-10] MEDS: ENOXAPARIN 100MG/ML SYR SUBCUT SCH ×2 (09:26→21:11)
[2019-10-10 12:00] VITALS: BP 120/74
[2019-10-10 16:00] VITALS: BP 91/59
[2019-10-10] MEDS: ACETAMINOPHEN 325MG TABLET PO PRN (17:28)
[2019-10-10 20:00] VITALS: BP 106/63
[2019-10-10] MEDS: DONEPEZIL HCL 5MG TABLET PO SCH (21:11)
[2019-10-11] VITALS: BP 109/76
[2019-10-11 04:00] VITALS: BP 130/67
[2019-10-11] MEDS: BLOOD SUGAR DIAGNOSTIC STRIP TEST SCH ×4 (06:49→21:34)
[2019-10-11] MEDS: INSULIN LISPRO 100 UNITS/ML SUBCUT SCH ×4 (08:10→21:00)
[2019-10-11 08:34] LABS: BASOPHILS % 0.8 % (0.0-2.0); EOSINOPHILS % 1.5 % (0.0-5.0); HEMATOCRIT. 41.7 % (36.0-48.0); HEMOGLOBIN. 13.3 g/dL (12.0-16.0); MEAN CORPUSCULAR HEMOGLOBIN 27.2 pg (28.0-32.0); MEAN CORPUSCULAR VOLUME 85.2 fL (81.0-99.0); MEAN PLATELET VOLUME 8.5 fl (7.4-10.4); MONOCYTES % 8.8 % (2.0-8.0); NEUTROPHILS % 66.9 % (40.0-76.0); PLATELET 313 x1000/uL (130-400); RED CELL DISTRIBUTION WIDTH 15.1 % (11.6-14.6)
[2019-10-11] MEDS: ENOXAPARIN 100MG/ML SYR SUBCUT SCH ×2 (09:34→21:33)
[2019-10-11] MEDS: AMITRIPTYLINE 10MG TABLET PO SCH (09:34)
[2019-10-11] MEDS: LEVOTHYROXINE SODIUM 88MCG TABLET PO SCH (09:34)
[2019-10-11] MEDS: DULOXETINE HCL 60MG DR CAPSULE PO SCH (09:35)
[2019-10-11] MEDS: FERROUS SULFATE 325MG TABLET PO SCH ×2 (09:35→16:00)
[2019-10-11] MEDS: MEMANTINE HCL 10MG TABLET PO SCH ×2 (09:35→21:31)
[2019-10-11] MEDS: ZINC SULFATE 220 MG ( 50 ) CAPSULE PO SCH (09:35)
[2019-10-11] MEDS: AMIODARONE HCL 200 MG TABLET PO SCH (09:35)
[2019-10-11] MEDS: METOPROLOL TARTRATE 25MG TABLET PO SCH ×2 (09:35→21:32)
[2019-10-11] MEDS: ACETAMINOPHEN 325MG TABLET PO PRN (09:36)
[2019-10-11 12:00] VITALS: BP_SYST 87; BP_SYST 92; BP_DIAS 51; BP_DIAS 55
[2019-10-11 15:34] VITALS: BP 138/67
[2019-10-11 20:00] VITALS: BP 130/87
[2019-10-11] MEDS: DONEPEZIL HCL 5MG TABLET PO SCH (21:39)
[2019-10-12] VITALS: BP 128/66
[2019-10-12 04:00] VITALS: BP 111/66
[2019-10-12] MEDS: BLOOD SUGAR DIAGNOSTIC STRIP TEST SCH ×4 (08:08→21:00)
[2019-10-12] MEDS: INSULIN LISPRO 100 UNITS/ML SUBCUT SCH ×4 (08:09→21:00)
[2019-10-12] MEDS: AMITRIPTYLINE 10MG TABLET PO SCH (10:07)
[2019-10-12] MEDS: LEVOTHYROXINE SODIUM 88MCG TABLET PO SCH (10:08)
[2019-10-12] MEDS: ZINC SULFATE 220 MG ( 50 ) CAPSULE PO SCH (10:08)
[2019-10-12] MEDS: MEMANTINE HCL 10MG TABLET PO SCH ×2 (10:08→22:23)
[2019-10-12] MEDS: AMIODARONE HCL 200 MG TABLET PO SCH (10:08)
[2019-10-12] MEDS: FERROUS SULFATE 325MG TABLET PO SCH ×2 (10:08→17:50)
[2019-10-12] MEDS: METOPROLOL TARTRATE 25MG TABLET PO SCH ×2 (10:09→22:23)
[2019-10-12] MEDS: ENOXAPARIN 100MG/ML SYR SUBCUT SCH ×2 (10:10→22:24)
[2019-10-12] MEDS: DULOXETINE HCL 60MG DR CAPSULE PO SCH (10:20)
[2019-10-12 12:00] VITALS: BP 110/71
[2019-10-12 16:00] VITALS: BP 132/60
[2019-10-12 20:00] VITALS: BP 143/69
[2019-10-12] MEDS: DONEPEZIL HCL 5MG TABLET PO SCH (22:23)
[2019-10-13] VITALS: BP 133/61
[2019-10-13 04:00] VITALS: BP 146/55
[2019-10-13] MEDS: INSULIN LISPRO 100 UNITS/ML SUBCUT SCH ×2 (06:17→13:10)
[2019-10-13] MEDS: BLOOD SUGAR DIAGNOSTIC STRIP TEST SCH ×2 (06:17→12:40)
[2019-10-13 08:00] VITALS: BP 118/70
[2019-10-13] MEDS: LEVOTHYROXINE SODIUM 88MCG TABLET PO SCH (08:32)
[2019-10-13] MEDS: DULOXETINE HCL 60MG DR CAPSULE PO SCH (08:57)
[2019-10-13] MEDS: METOPROLOL TARTRATE 25MG TABLET PO SCH (08:57)
[2019-10-13] MEDS: FERROUS SULFATE 325MG TABLET PO SCH (08:57)
[2019-10-13] MEDS: AMIODARONE HCL 200 MG TABLET PO SCH (08:57)
[2019-10-13] MEDS: MEMANTINE HCL 10MG TABLET PO SCH (08:57)
[2019-10-13] MEDS: AMITRIPTYLINE 10MG TABLET PO SCH (08:57)
[2019-10-13] MEDS: ENOXAPARIN 100MG/ML SYR SUBCUT SCH (08:58)
[2019-10-13] MEDS: ZINC SULFATE 220 MG ( 50 ) CAPSULE PO SCH (08:58)
[2019-10-13 11:28] VITALS: BP 140/67
[2019-10-13] MEDS ORDERED: SODIUM CHLORIDE 45ML SPRAY NS SCH (18:00)
== END 2019-10-13 15:10 | DRG 871 ==
LOC: ER 21:00 → EDBEDREQ 23:08 → EDBEDREQSVC 23:08 → 7WST 23:31 → EDBEDREQ 23:37 → ENRESERV 10-02 03:39
PROVIDERS: ADMIT Specialist; ATTEND Specialist
DX: A41.89 Other specified sepsis (principal); U07.1 COVID-19; J96.01 Acute respiratory failure with hypoxia; J12.89 Other viral pneumonia; N39.0 Urinary tract infection, site not specified; E44.1 Mild protein-calorie malnutrition; I48.92 Unspecified atrial flutter; N17.9 Acute kidney failure, unspecified; E87.0 Hyperosmolality and hypernatremia; F03.90 Unspecified dementia, unspecified severity, without behavioral disturbance, psychotic disturbance, mood disturbance, and anxiety; I10 Essential (primary) hypertension; E78.5 Hyperlipidemia, unspecified; E11.9 Type 2 diabetes mellitus without complications; E78.00 Pure hypercholesterolemia, unspecified; E83.39 Other disorders of phosphorus metabolism; R65.20 Severe sepsis without septic shock; E05.90 Thyrotoxicosis, unspecified without thyrotoxic crisis or storm; E03.9 Hypothyroidism, unspecified; E66.9 Obesity, unspecified; I48.91 Unspecified atrial fibrillation; Z68.33 Body mass index [BMI] 33.0-33.9, adult; Z86.73 Personal history of transient ischemic attack (TIA), and cerebral infarction without residual deficits; Z79.899 Other long term (current) drug therapy
CPT/HCPCS: 36415; 71045; 80048; 80053; 81003; 82553; 82728; 82962; 83605; 83615; 83735; 83880; 84100; 84145; 84439; 84443; 84484; 85025; 85379; 86140; 87635; 87804; 93005; 99285; J0456; J0696; J1650; J1815; J3490; J7030; J7060

== ENCOUNTER 2022-07-11 09:41 | Inpatient (IN) | payer MEDICARE, MEDICAID ==
[~2022-07-11] VITALS: Ht 172.7 cm; Wt 61.9 kg
[~2022-07-11 09:41] MED LIST changes: -BUSP5TAB3 PO; -DULO60CA44 PO; +DULO60CA45 PO; -LISI10TA5 PO; -PREG100C PO; +SULF1TAB48 MT
[2022-07-11 10:54] LABS: BASOPHILS % 0.4 % (0.0-2.0); EOSINOPHILS % 1.3 % (0.0-5.0); HEMATOCRIT. 42.9 % (36.0-48.0); HEMOGLOBIN. 13.9 g/dL (12.0-16.0); LYMPHOCYTES % 53.3 % (20.0-50.0); MEAN CORPUSCULAR HEMOGLOBIN 27.5 pg (28.0-32.0); MEAN CORPUSCULAR VOLUME 84.9 fL (81.0-99.0); MEAN PLATELET VOLUME 8.1 fl (7.4-10.4); MONOCYTES % 5.5 % (2.0-8.0); NEUTROPHILS % 39.5 % (40.0-76.0); PLATELET 292 x1000/uL (130-400); RED BLOOD CELL COUNT 5.05 mill/uL (4.2-5.4); RED CELL DISTRIBUTION WIDTH 16.7 % (11.6-14.6)
[2022-07-11 12:57] LABS: CHLORIDE 105 mEq/L (98-107)
[2022-07-11] MEDS ORDERED: ACETAMINOPHEN 325MG TABLET PO PRN (15:15)
[2022-07-11] MEDS ORDERED: ONDANSETRON HCL 4MG/2ML INJ IV PRN (15:15)
[2022-07-11] MEDS ORDERED: CLONIDINE 0.1MG TABLET PO PRN (15:15)
[2022-07-11] MEDS ORDERED: DIPHENHYDRAMINE 50MG/ML VIAL IV PRN (15:15)
[2022-07-11] MEDS ORDERED: IPRATROPIUM/ALBUTEROL 0.5-3(2.5)MG/3ML NEB HHN PRN (15:15)
[2022-07-11] MEDS ORDERED: DEXTROSE 50% WATER 50ML SYRINGE IV PRN (15:45)
[2022-07-11] MEDS: INSULIN LISPRO 100 UNITS/ML SUBCUT SCH ×2 (17:55→21:00)
[2022-07-11 18:32] VITALS: BP 136/81
[2022-07-11 18:37] VITALS: BP 136/81
[2022-07-11] MEDS: BLOOD SUGAR DIAGNOSTIC STRIP TEST SCH ×2 (18:53→22:12)
[2022-07-11 20:00] VITALS: BP 119/63
[2022-07-12] VITALS (8 sets, daily range): BP systolic 108–132; BP diastolic 50–64
[2022-07-12] MEDS ORDERED: MULT9LIQ7 PO (04:53)
[2022-07-12] MEDS ORDERED: CLON0.1T PO (04:54)
[2022-07-12] MEDS ORDERED: DOCU-150 PO (04:56)
[2022-07-12] MEDS ORDERED: FAMO20TA8 PO (04:58)
[2022-07-12] MEDS ORDERED: HYDR-4135 PO (05:05)
[2022-07-12] MEDS ORDERED: HYDR-4001 PO (05:07)
[2022-07-12] MEDS ORDERED: METF-414 PO (05:10)
[2022-07-12] MEDS ORDERED: MOM MT (05:12)
[2022-07-12] MEDS ORDERED: TOPUD PO (05:13)
[2022-07-12] MEDS ORDERED: CHOL400D7 PO (05:16)
[2022-07-12 06:01] LABS: BASOPHILS % 0.3 % (0.0-2.0); EOSINOPHILS % 0.1 % (0.0-5.0); HEMATOCRIT. 38.8 % (36.0-48.0); HEMOGLOBIN. 12.6 g/dL (12.0-16.0); MEAN CORPUSCULAR HEMOGLOBIN 27.5 pg (28.0-32.0); MEAN CORPUSCULAR VOLUME 84.7 fL (81.0-99.0); MEAN PLATELET VOLUME 8.2 fl (7.4-10.4); MONOCYTES % 7.5 % (2.0-8.0); NEUTROPHILS % 75.1 % (40.0-76.0); PLATELET 281 x1000/uL (130-400); RED BLOOD CELL COUNT 4.58 mill/uL (4.2-5.4); RED CELL DISTRIBUTION WIDTH 15.2 % (11.6-14.6)
[2022-07-12 06:09] LABS: CHLORIDE 106 mEq/L (98-107)
[2022-07-12] MEDS: BLOOD SUGAR DIAGNOSTIC STRIP TEST SCH ×4 (06:49→21:26)
[2022-07-12] MEDS: INSULIN LISPRO 100 UNITS/ML SUBCUT SCH ×4 (07:20→21:00)
[2022-07-12] MEDS ORDERED: ALBUTEROL (0.083%) 2.5MG/3ML NEB HHN PRN (16:00)
[2022-07-12] MEDS ORDERED: IPRATROPIUM BROMIDE (0.02%) 0.5MG/2.5ML NEB HHN PRN (16:00)
[2022-07-12] MEDS ORDERED: PANTOT AC/MIN OIL/PET HY-PHL OINT (AQUAPHOR) TOP SCH (18:00)
[2022-07-12 19:54] LABS: CLARITY URINE CLOUDY (CLEAR); COLOR URINE DARK YELLOW (YELLOW); KETONES URINE NEGATIVE (NEGATIVE); LEUKOCYTE ESTERASE URINE 2+ (NEGATIVE); NITRITE URINE POSITIVE (NEGATIVE); OCCULT BLOOD URINE TRACE (NEGATIVE); PROTEIN URINE TRACE (NEGATIVE); SPECIFIC GRAVITY URINE 1.028 (1.005-1.030)
== END 2022-07-13 00:25 | DRG 312 ==
LOC: ER 09:41 → 3WST 12:37 → EDBEDREQTM 12:43 → EDBEDREQ 12:43 → ENRESERV 16:03 → CANRESERV 16:03 → ENRESERV 16:15
PROVIDERS: ADMIT Family Medicine Adult Medicine; ATTEND Family Medicine Adult Medicine
DX: R55 Syncope and collapse (principal); I50.22 Chronic systolic (congestive) heart failure; E11.9 Type 2 diabetes mellitus without complications; I11.0 Hypertensive heart disease with heart failure; E03.9 Hypothyroidism, unspecified; F03.90 Unspecified dementia, unspecified severity, without behavioral disturbance, psychotic disturbance, mood disturbance, and anxiety; E78.00 Pure hypercholesterolemia, unspecified; K21.9 Gastro-esophageal reflux disease without esophagitis; Z82.49 Family history of ischemic heart disease and other diseases of the circulatory system; Z86.73 Personal history of transient ischemic attack (TIA), and cerebral infarction without residual deficits
CPT/HCPCS: 36415; 71045; 80053; 81003; 82962; 83880; 84484; 85025; 87077; 87186; 93005; 93306; 93880; 93970; 99285